=== PATIENT | female | born 1945 | race Caucasian/White ===

== ENCOUNTER 2021-04-08 07:30 | Inpatient (IN) | payer MEDICARE, OTHER ==
[~2021-04-08] VITALS: Ht 170.2 cm; Wt 95.0 kg
[2021-04-15] MEDS ORDERED: HYDR25TA6 PO (13:02)
[2021-04-15] MEDS ORDERED: METO-99 PO (13:02)
[2021-04-15] MEDS ORDERED: ACET-1600 PO (13:02)
[2021-04-15] MEDS ORDERED: LEVO200T PO (13:02)
[2021-04-15] MEDS ORDERED: ATOR20TA37 PO (13:02)
[2021-04-15] MEDS ORDERED: APIX5TAB PO (13:02)
[2021-04-15] MEDS ORDERED: LOSA100T2 PO (13:02)
[2021-04-15 13:52] LABS: MEAN CORPUSCULAR HGB CONC 33.5 g/dL (32.4-35.8); MEAN PLATELET VOLUME 8.9 fL (7.4-10.4); PLATELET COUNT 221 x10^3/uL (130-400); RED BLOOD COUNT 5.22 x10^6/uL (3.82-5.3); RED CELL DISTRIBUTION WIDTH 13.4 % (9.6-15.2)
[2021-04-15 13:55] LABS: MICROSCOPIC AUTO
[2021-04-15 13:58] LABS: ALANINE AMINOTRANSFERASE 28 U/L (12-78); ALBUMIN 3.7 g/dL (3.4-5.0); ANION GAP 6 mmol/L (5-15); CALCIUM 9.4 mg/dL (8.5-10.1); CHLORIDE 104 mmol/L (98-107); CREATININE 0.79 mg/dL (0.55-1.02)
[2021-04-15 14:01] LABS: ALKALINE PHOSPHATASE 48 U/L (45-117); BILIRUBIN,TOTAL 0.8 mg/dL (0.2-1.0); TOTAL PROTEIN 7.2 g/dL (6.4-8.2)
[2021-04-15 14:05] LABS: INTERNATIONAL NORMALIZED RATIO 1.03 (0.93-1.1)
[2021-04-15 15:13] LABS: <RBC MORPHOLOGY> NORMAL; BASOS#(MANUAL) 0.08 x10^3/uL (0-0.1); BASOS% (MANUAL) 1 % (0-1); EOS#(MANUAL) 0.08 x10^3/uL (0.0-0.4); EOS% (MANUAL) 1 % (1-7); LYMPH#(MANUAL) 2.46 x10^3/uL (1-3.4); LYMPHS% (MANUAL) 30 % (22-44); MONOS#(MANUAL) 0.66 x10^3/uL (0.3-2.7); MONOS% (MANUAL) 8 % (2-9); SEG#(MANUAL) 4.92 x10^3/uL (1.8-6.8); SEGS% (MANUAL) 60 % (42-75)
[2021-04-15 15:14] LABS: <PLATELET ESTIMATE> ADEQUATE; <PLT MORPHOLOGY> NORMAL PLT MORPH
[2021-04-16 04:46] VITALS: BP_SYST 156; BP_DIAS 107; BP_DIAS 98
[2021-04-16] MEDS ORDERED: CHLORHEXIDINE 15 ML UDC MM SCH (05:00)
[2021-04-16] MEDS ORDERED: INSULIN LISPRO 100 UNITS/ML, PEN SQ-INSULIN SCH (05:00)
[2021-04-16] MEDS ORDERED: DO NOT GIVE MC SCH (05:00)
[2021-04-16] MEDS: MUPIROCIN OINT 2%, 15GM TP SCH ×2 (05:17→18:00)
[2021-04-16] MEDS ORDERED: MIDAZOLAM 10MG/2 ML ONE (07:05)
[2021-04-16] MEDS ORDERED: FENTANYL PF 250 MCG/5ML ONE ×4 (07:06)
[2021-04-16] MEDS ORDERED: REGULAR INSULIN 100 UNITS in SODIUM CHLORIDE 0.9% 99 ML IV PRN ×2 (07:30→12:30)
[2021-04-16] MEDS ORDERED: MANNITOL PMX 20% 500 ML IVPB PRN (07:30)
[2021-04-16] MEDS ORDERED: POTASSIUM CHLORIDE 80 MEQ, SODIUM BICARBONATE 8.4% 10 MEQ, MAGNESIUM SULFATE 0.5 GM, LI... IV PRN (07:30)
[2021-04-16] MEDS ORDERED: PHENYLEPHRINE 50 MG in SODIUM CHLORIDE 0.9% 245 ML IV PRN ×2 (07:30→12:30)
[2021-04-16] MEDS ORDERED: EPINEPHRINE 5 MG in SODIUM CHLORIDE 0.9% 245 ML IV PRN ×2 (07:30→12:30)
[2021-04-16] MEDS ORDERED: ALBUMIN HUMAN 5% 500 ML IV PRN ×2 (07:30→12:30)
[2021-04-16] MEDS ORDERED: VANCOMYCIN 1,400 MG in SODIUM CHLORIDE 0.9% 250 ML IV PRN (07:30)
[2021-04-16] MEDS ORDERED: DEXMEDETOMIDINE 200 MCG in SODIUM CHLORIDE 0.9% 48 ML IV PRN (07:30)
[2021-04-16] MEDS ORDERED: CEFUROXIME 1.5 GM in SODIUM CHLORIDE 0.9% 50 ML IVPB PRN (07:30)
[2021-04-16] MEDS ORDERED: PROPOFOL 10 MG/ML, 20ML ONE (10:41)
[2021-04-16] MEDS ORDERED: ROCURONIUM 10MG/ML,5ML ONE ×2 (10:41)
[2021-04-16] MEDS ORDERED: PROTAMINE SULFATE 10 MG/ML, 25ML ONE ×3 (10:41)
[2021-04-16] MEDS ORDERED: AMINOCAPROIC ACID 250 MG/ML, 20ML ONE ×2 (10:41)
[2021-04-16] MEDS ORDERED: AMIODARONE 50 MG/ML, 3ML ONE ×2 (11:20)
[2021-04-16] MEDS ORDERED: DEXTROSE 50%, 50ML SYRINGE IVPush PRN (12:30)
[2021-04-16] MEDS: INSULIN LISPRO 100 UNITS/ML, PEN SQ-INSULIN SCH ×3 (12:30→20:30)
[2021-04-16] MEDS: KSCALE TO 4.5 IV SCH ×2 (12:30→18:30)
[2021-04-16] MEDS ORDERED: CALCIUM CHLORIDE 13.6 MEQ in SODIUM CHLORIDE 0.9% 100 ML IVPB PRN (12:30)
[2021-04-16] MEDS ORDERED: PROCHLORPERAZINE 5 MG/ML, 2ML IVPush PRN (12:30)
[2021-04-16] MEDS ORDERED: PROMETHAZINE 25 MG SUPP PR PRN (12:30)
[2021-04-16] MEDS ORDERED: MIDAZOLAM 1 MG/ML, 2ML IV PRN (12:30)
[2021-04-16] MEDS ORDERED: LACTATED RINGERS 500 ML IV PRN (12:30)
[2021-04-16] MEDS ORDERED: FENTANYL PF 100 MCG/2ML IV PRN (12:30)
[2021-04-16] MEDS ORDERED: GLUCAGON 1 MG IM PRN (12:30)
[2021-04-16] MEDS ORDERED: DEXTROSE 4 GM TAB.CHEW PO PRN (12:30)
[2021-04-16] MEDS ORDERED: NITROGLYCERIN/D5W PMX 250 ML IV PRN (12:30)
[2021-04-16] MEDS ORDERED: DEXMEDETOMIDINE 400 MCG in SODIUM CHLORIDE 0.9% 96 ML IV PRN (12:30)
[2021-04-16] MEDS: ACETAMINOPHEN 500 MG TABLET PO SCH ×3 (12:30→23:34)
[2021-04-16] MEDS ORDERED: SODIUM CHLORIDE 0.9% 1,000 ML IV SCH (12:30)
[2021-04-16] MEDS ORDERED: INSULIN REGULAR 100 UNITS/ML, 3ML VIAL IVPush PRN (12:30)
[2021-04-16] MEDS ORDERED: CALCIUM CHLORIDE 10%, 10ML SYR ONE (12:54)
[2021-04-16] MEDS ORDERED: HEPARIN 1,000 UNITS/ML, 30ML ONE (12:54)
[2021-04-16] MEDS ORDERED: SODIUM BICARB 8.4%, 50ML SYRINGE ONE (12:54)
[2021-04-16] MEDS ORDERED: POTASSIUM CHLORIDE 40MEQ/20ML IV ONE (12:55)
[2021-04-16] MEDS ORDERED: MAGNESIUM SULFATE PMX 2GM/50ML 50 ML ONE (12:55)
[2021-04-16] MEDS ORDERED: ALBUMIN HUMAN 25% 50 ML ONE (12:55)
[2021-04-16] MEDS ORDERED: LIDOCAINE 2%, 20ML ONE (12:55)
[2021-04-16 13:21] LABS: GLUCOSE BY BLOOD GAS ANALYZER 153 mg/dL (70-110); HEMOGLOBIN BY BLOOD GAS ANALYZ 12.9 g/dL (14.0-18.0); POTASSIUM BY BLOOD GAS ANALYZR 4.1 mmol/L (3.6-5.5)
[2021-04-16 13:22] LABS: FIO2 60 %
[2021-04-16] MEDS: SODIUM BICARB 8.4%, 50ML SYRINGE IV PRN ×2 (13:46→15:02)
[2021-04-16] MEDS: MAGNESIUM SULFATE 1 GM in SODIUM CHLORIDE 0.9% 100 ML IVPB SCH (13:47)
[2021-04-16] MEDS: SODIUM CHLORIDE FLUSH 10ML SYR IVF SCH ×3 (13:54→21:03)
[2021-04-16] MEDS: morphine SULFATE 10 MG/ML, 1ML IVPush PRN ×2 (14:25→17:31)
[2021-04-16] MEDS ORDERED: AMIODARONE 150 MG in DEXTROSE 5% 100 ML IV ONE (17:30)
[2021-04-16] MEDS ORDERED: FILTER 0.22 MICRON IV ONE (17:30)
[2021-04-16] MEDS: OXYcodone IR 5MG TABLET PO PRN ×2 (17:31→21:31)
[2021-04-16] MEDS: AMIODARONE 450 MG in DEXTROSE 5% 241 ML IV PRN (17:39)
[2021-04-16] MEDS: CEFUROXIME 1.5 GM in SODIUM CHLORIDE 0.9% 50 ML IVPB SCH (19:30)
[2021-04-16] MEDS ORDERED: POTASSIUM CHLORIDE 30 MEQ in SODIUM CHLORIDE 0.9% 100 ML IV ONE (19:30)
[2021-04-16] MEDS: VANCOMYCIN 1,400 MG in SODIUM CHLORIDE 0.9% 250 ML IVPB SCH (21:03)
[2021-04-16] MEDS: DOCUSATE 100 MG CAPSULE PO SCH (21:06)
[2021-04-16] MEDS: SENNA/DOCUSATE TABLET PO SCH (21:06)
[2021-04-16] MEDS: ONDANSETRON 2MG/ML, 2ML IVPush PRN (23:03)
[2021-04-17] MEDS: OXYcodone IR 5MG TABLET PO PRN ×4 (00:26→14:36)
[2021-04-17] MEDS: KSCALE TO 4.5 IV SCH ×2 (00:30→06:12)
[2021-04-17] MEDS: INSULIN LISPRO 100 UNITS/ML, PEN SQ-INSULIN SCH ×6 (00:30→20:33)
[2021-04-17] MEDS: AMIODARONE 450 MG in DEXTROSE 5% 241 ML IV PRN (00:42)
[2021-04-17] MEDS: morphine SULFATE 10 MG/ML, 1ML IVPush PRN (02:10)
[2021-04-17] MEDS ORDERED: FUROSEMIDE 40 MG/4 ML IV ONE ×2 (05:00→21:30)
[2021-04-17] MEDS: MUPIROCIN OINT 2%, 15GM TP SCH ×2 (05:25→18:33)
[2021-04-17] MEDS: MUPIROCIN OINT 2%, 15GM NAS SCH ×2 (05:26→17:59)
[2021-04-17 05:27] LABS: MEAN CORPUSCULAR HEMOGLOBIN 28.9 pg (27.0-34.8); MEAN CORPUSCULAR HGB CONC 33.1 g/dL (32.4-35.8); MEAN PLATELET VOLUME 9.2 fL (7.4-10.4); PLATELET COUNT 121 x10^3/uL (130-400); RED BLOOD COUNT 4.74 x10^6/uL (3.82-5.3); RED CELL DISTRIBUTION WIDTH 13.8 % (9.6-15.2)
[2021-04-17 05:33] LABS: ANION GAP 5 mmol/L (5-15); CALCIUM 8.7 mg/dL (8.5-10.1); CHLORIDE 114 mmol/L (98-107); CREATININE 1.11 mg/dL (0.55-1.02)
[2021-04-17 05:57] LABS: <PLATELET ESTIMATE> DECREASED; <PLT MORPHOLOGY> NORMAL PLT MORPH; <RBC MORPHOLOGY> NORMAL; BAND#(MANUAL) 1.08 x10^3/uL; BANDS%(MANUAL) 6 % (0-7); LYMPH#(MANUAL) 2.16 x10^3/uL (1-3.4); LYMPHS% (MANUAL) 12 % (22-44); MONOS#(MANUAL) 1.44 x10^3/uL (0.3-2.7); MONOS% (MANUAL) 8 % (2-9); SEG#(MANUAL) 13.32 x10^3/uL (1.8-6.8); SEGS% (MANUAL) 74 % (42-75)
[2021-04-17 05:58] LABS: PMNS WITH VACUOLES 1+
[2021-04-17] MEDS: ACETAMINOPHEN 500 MG TABLET PO SCH ×3 (06:12→18:33)
[2021-04-17] MEDS: CEFUROXIME 1.5 GM in SODIUM CHLORIDE 0.9% 50 ML IVPB SCH (06:31)
[2021-04-17] MEDS: OMEPRAZOLE 20 MG CAPSULE.DR PO SCH (07:45)
[2021-04-17] MEDS: VANCOMYCIN 1,400 MG in SODIUM CHLORIDE 0.9% 250 ML IVPB SCH (08:13)
[2021-04-17] MEDS: POLYETHYLENE GLYCOL 17 GM PACKET PO SCH (09:00)
[2021-04-17] MEDS: SODIUM CHLORIDE FLUSH 10ML SYR IVF SCH ×4 (09:00→20:56)
[2021-04-17] MEDS: DOCUSATE 100 MG CAPSULE PO SCH ×2 (09:26→20:43)
[2021-04-17] MEDS: CHLORHEXIDINE 15 ML UDC MM SCH ×2 (09:27→20:44)
[2021-04-17] MEDS: SENNA/DOCUSATE TABLET PO SCH ×2 (09:27→20:44)
[2021-04-17] MEDS: ASPIRIN 81 MG TABLET EC PO SCH (09:27)
[2021-04-17] MEDS ORDERED: POTASSIUM CHLORIDE 20 MEQ TAB.ER.PRT PO ONE (10:00)
[2021-04-17] MEDS ORDERED: FUROSEMIDE 40 MG/4 ML IV SCH (10:00)
[2021-04-17] MEDS ORDERED: METOPROLOL TARTRATE 25 MG TAB ONE (10:07)
[2021-04-17] MEDS: METOPROLOL TARTRATE 25 MG TAB PO SCH ×2 (10:10→17:59)
[2021-04-17] MEDS: AMIODARONE 200 MG TABLET PO SCH ×2 (10:10→20:43)
[2021-04-17] MEDS: LEVOTHYROXINE 200 MCG TABLET PO SCH (10:11)
[2021-04-17] MEDS: MAGNESIUM SULFATE 1 GM in SODIUM CHLORIDE 0.9% 100 ML IVPB SCH (12:29)
[2021-04-17] MEDS: LORazepam 1MG TABLET PO PRN (14:36)
[2021-04-18] MEDS: ACETAMINOPHEN 500 MG TABLET PO SCH ×4 (00:53→18:29)
[2021-04-18] MEDS: INSULIN LISPRO 100 UNITS/ML, PEN SQ-INSULIN SCH ×5 (00:56→21:00)
[2021-04-18] MEDS: DIPHENHYDRAMINE 25 MG CAPSULE PO PRN (01:02)
[2021-04-18 05:29] LABS: BASOPHILS % (AUTO) 1 % (0-1); EOSINOPHILS % (AUTO) 0 % (1-7); LYMPHOCYTES % (AUTO) 10 % (22-44); MEAN CORPUSCULAR HEMOGLOBIN 28.8 pg (27.0-34.8); MEAN CORPUSCULAR HGB CONC 32.9 g/dL (32.4-35.8); MONOCYTES % (AUTO) 9 % (2-9); NEUTROPHILS % (AUTO) 80 % (42-75); PLATELET COUNT 89 x10^3/uL (130-400); RED BLOOD COUNT 4.21 x10^6/uL (3.82-5.3); RED CELL DISTRIBUTION WIDTH 13.6 % (9.6-15.2)
[2021-04-18 05:38] LABS: ANION GAP 7 mmol/L (5-15); CALCIUM 8.9 mg/dL (8.5-10.1); CHLORIDE 107 mmol/L (98-107); CREATININE 1.69 mg/dL (0.55-1.02)
[2021-04-18] MEDS: MUPIROCIN OINT 2%, 15GM NAS SCH ×2 (06:20→21:01)
[2021-04-18] MEDS: LEVOTHYROXINE 200 MCG TABLET PO SCH (06:31)
[2021-04-18] MEDS: METOPROLOL TARTRATE 25 MG TAB PO SCH ×2 (06:32→18:29)
[2021-04-18] MEDS: MUPIROCIN OINT 2%, 15GM TP SCH (06:32)
[2021-04-18] MEDS ORDERED: ENOXAPARIN 40 MG/0.4 ML SQ SCH (09:00)
[2021-04-18] MEDS: SENNA/DOCUSATE TABLET PO SCH ×2 (09:27→21:01)
[2021-04-18] MEDS: OMEPRAZOLE 20 MG CAPSULE.DR PO SCH (09:27)
[2021-04-18] MEDS: AMIODARONE 200 MG TABLET PO SCH ×2 (09:27→21:01)
[2021-04-18] MEDS: ASPIRIN 81 MG TABLET EC PO SCH (09:27)
[2021-04-18] MEDS: DOCUSATE 100 MG CAPSULE PO SCH ×2 (09:27→21:01)
[2021-04-18] MEDS: FUROSEMIDE 20 MG/2 ML IV SCH ×2 (09:28→21:01)
[2021-04-18] MEDS: SODIUM CHLORIDE FLUSH 10ML SYR IVF SCH ×2 (09:28→21:01)
[2021-04-18] MEDS: POLYETHYLENE GLYCOL 17 GM PACKET PO SCH (09:28)
[2021-04-18] MEDS: CHLORHEXIDINE 15 ML UDC MM SCH ×2 (09:28→21:02)
[2021-04-18] MEDS: MAGNESIUM SULFATE 1 GM in SODIUM CHLORIDE 0.9% 100 ML IVPB SCH (12:01)
[2021-04-18] MEDS ORDERED: BISACODYL 10 MG SUPP PR PRN (12:30)
[2021-04-18 13:14] VITALS: BP 120/73
[2021-04-18] MEDS: OXYcodone IR 5MG TABLET PO PRN ×2 (15:01→18:29)
[2021-04-18 18:27] VITALS: BP 116/72
[2021-04-19] MEDS: ACETAMINOPHEN 500 MG TABLET PO SCH ×4 (00:33→17:40)
[2021-04-19 00:53] VITALS: BP 118/75
[2021-04-19 05:26] LABS: BASOPHILS % (AUTO) 0 % (0-1); EOSINOPHILS % (AUTO) 1 % (1-7); LYMPHOCYTES % (AUTO) 14 % (22-44); MEAN CORPUSCULAR HEMOGLOBIN 28.9 pg (27.0-34.8); MEAN CORPUSCULAR HGB CONC 33.3 g/dL (32.4-35.8); MEAN PLATELET VOLUME 10.2 fL (7.4-10.4); MONOCYTES % (AUTO) 9 % (2-9); NEUTROPHILS % (AUTO) 76 % (42-75); PLATELET COUNT 85 x10^3/uL (130-400); RED CELL DISTRIBUTION WIDTH 14.2 % (9.6-15.2)
[2021-04-19 05:29] LABS: ANION GAP 7 mmol/L (5-15); CALCIUM 8.7 mg/dL (8.5-10.1); CHLORIDE 102 mmol/L (98-107)
[2021-04-19] MEDS: METOPROLOL TARTRATE 25 MG TAB PO SCH ×2 (05:43→17:40)
[2021-04-19] MEDS: LEVOTHYROXINE 200 MCG TABLET PO SCH (05:44)
[2021-04-19] MEDS: MUPIROCIN OINT 2%, 15GM NAS SCH ×2 (05:44→17:32)
[2021-04-19 06:35] VITALS: BP 129/75
[2021-04-19] MEDS: INSULIN LISPRO 100 UNITS/ML, PEN SQ-INSULIN SCH (06:55)
[2021-04-19] MEDS ORDERED: METOLAZONE 2.5 MG TABLET PO ONE (08:00)
[2021-04-19] MEDS: POLYETHYLENE GLYCOL 17 GM PACKET PO SCH (08:29)
[2021-04-19] MEDS: AMIODARONE 200 MG TABLET PO SCH ×2 (08:31→21:30)
[2021-04-19] MEDS: SENNA/DOCUSATE TABLET PO SCH ×2 (08:31→21:30)
[2021-04-19] MEDS: FUROSEMIDE 20 MG/2 ML IV SCH ×2 (08:31→21:30)
[2021-04-19] MEDS: SODIUM CHLORIDE FLUSH 10ML SYR IVF SCH ×2 (08:32→21:31)
[2021-04-19] MEDS: ASPIRIN 81 MG TABLET EC PO SCH (08:32)
[2021-04-19] MEDS: OMEPRAZOLE 20 MG CAPSULE.DR PO SCH (08:32)
[2021-04-19] MEDS: DOCUSATE 100 MG CAPSULE PO SCH ×2 (08:32→21:30)
[2021-04-19] MEDS ORDERED: ENOXAPARIN 30 MG/0.3 ML SQ SCH (09:00)
[2021-04-19 09:43] VITALS: BP 105/63
[2021-04-19] MEDS: ONDANSETRON 2MG/ML, 2ML IVPush PRN ×2 (11:15→17:40)
[2021-04-19 12:17] VITALS: BP 135/89
[2021-04-19 18:10] VITALS: BP 136/81
[2021-04-19] MEDS: APIXABAN 5 MG TABLET PO SCH (21:30)
[2021-04-19 23:38] VITALS: BP 130/83
[2021-04-20] MEDS: ACETAMINOPHEN 500 MG TABLET PO SCH ×4 (00:30→17:41)
[2021-04-20 05:33] LABS: BASOPHILS % (AUTO) 0 % (0-1); EOSINOPHILS % (AUTO) 1 % (1-7); LYMPHOCYTES % (AUTO) 14 % (22-44); MEAN CORPUSCULAR HEMOGLOBIN 29.2 pg (27.0-34.8); MEAN CORPUSCULAR HGB CONC 33.8 g/dL (32.4-35.8); MEAN PLATELET VOLUME 9.7 fL (7.4-10.4); MONOCYTES % (AUTO) 10 % (2-9); NEUTROPHILS % (AUTO) 75 % (42-75); PLATELET COUNT 112 x10^3/uL (130-400); RED BLOOD COUNT 4.19 x10^6/uL (3.82-5.3); RED CELL DISTRIBUTION WIDTH 13.6 % (9.6-15.2)
[2021-04-20 05:35] LABS: ANION GAP 9 mmol/L (5-15); CHLORIDE 99 mmol/L (98-107); CREATININE 0.81 mg/dL (0.55-1.02)
[2021-04-20] MEDS: MUPIROCIN OINT 2%, 15GM NAS SCH ×2 (06:00→17:54)
[2021-04-20] MEDS: METOPROLOL TARTRATE 25 MG TAB PO SCH ×2 (06:00→17:52)
[2021-04-20] MEDS: LEVOTHYROXINE 200 MCG TABLET PO SCH (06:01)
[2021-04-20] MEDS: SODIUM CHLORIDE FLUSH 10ML SYR IVF SCH ×2 (07:58→21:12)
[2021-04-20] MEDS: POLYETHYLENE GLYCOL 17 GM PACKET PO SCH (07:59)
[2021-04-20] MEDS: APIXABAN 5 MG TABLET PO SCH ×2 (07:59→21:11)
[2021-04-20] MEDS: SENNA/DOCUSATE TABLET PO SCH ×2 (07:59→21:00)
[2021-04-20] MEDS: ASPIRIN 81 MG TABLET EC PO SCH (07:59)
[2021-04-20] MEDS: DOCUSATE 100 MG CAPSULE PO SCH ×2 (07:59→21:00)
[2021-04-20] MEDS: FUROSEMIDE 20 MG/2 ML IV SCH ×2 (08:00→21:12)
[2021-04-20] MEDS: AMIODARONE 200 MG TABLET PO SCH ×2 (08:00→21:11)
[2021-04-20] MEDS: OMEPRAZOLE 20 MG CAPSULE.DR PO SCH (08:00)
[2021-04-20 08:02] VITALS: BP 148/73
[2021-04-20] MEDS: ONDANSETRON 2MG/ML, 2ML IVPush PRN (08:24)
[2021-04-20 13:23] VITALS: BP 148/60
[2021-04-20] MEDS ORDERED: POTASSIUM CHLORIDE 20 MEQ TAB.ER.PRT PO ONE (14:00)
[2021-04-20 14:10] VITALS: BP 132/80
[2021-04-20] MEDS: LORazepam 1MG TABLET PO PRN (16:53)
[2021-04-20 16:56] VITALS: BP 161/75
[2021-04-20] MEDS: METOCLOPRAMIDE 10MG TABLET PO SCH ×2 (17:40→21:12)
[2021-04-20 18:30] VITALS: BP 143/57
[2021-04-20] MEDS: DIPHENHYDRAMINE 25 MG CAPSULE PO PRN (22:11)
[2021-04-21 00:07] VITALS: BP 158/84
[2021-04-21] MEDS: ACETAMINOPHEN 500 MG TABLET PO SCH ×2 (00:18→06:06)
[2021-04-21 04:43] LABS: BASOPHILS % (AUTO) 1 % (0-1); EOSINOPHILS % (AUTO) 1 % (1-7); LYMPHOCYTES % (AUTO) 21 % (22-44); MEAN CORPUSCULAR HEMOGLOBIN 29.1 pg (27.0-34.8); MEAN CORPUSCULAR HGB CONC 34.2 g/dL (32.4-35.8); MEAN PLATELET VOLUME 8.2 fL (7.4-10.4); MONOCYTES % (AUTO) 12 % (2-9); NEUTROPHILS % (AUTO) 65 % (42-75); PLATELET COUNT 157 x10^3/uL (130-400); RED CELL DISTRIBUTION WIDTH 13.1 % (9.6-15.2)
[2021-04-21 04:57] LABS: ANION GAP 7 mmol/L (5-15); CHLORIDE 95 mmol/L (98-107); CREATININE 0.78 mg/dL (0.55-1.02)
[2021-04-21] MEDS: MUPIROCIN OINT 2%, 15GM NAS SCH ×2 (06:06→18:12)
[2021-04-21] MEDS: LEVOTHYROXINE 200 MCG TABLET PO SCH (06:06)
[2021-04-21] MEDS: METOPROLOL TARTRATE 25 MG TAB PO SCH ×2 (06:07→18:12)
[2021-04-21 06:26] VITALS: BP 151/87
[2021-04-21] MEDS: FUROSEMIDE 20 MG/2 ML IV SCH ×2 (08:07→20:01)
[2021-04-21] MEDS: AMIODARONE 200 MG TABLET PO SCH ×2 (08:08→20:00)
[2021-04-21] MEDS: OMEPRAZOLE 20 MG CAPSULE.DR PO SCH (08:08)
[2021-04-21] MEDS: APIXABAN 5 MG TABLET PO SCH ×2 (08:09→20:00)
[2021-04-21] MEDS: METOCLOPRAMIDE 10MG TABLET PO SCH ×4 (08:09→20:10)
[2021-04-21] MEDS: SODIUM CHLORIDE FLUSH 10ML SYR IVF SCH ×2 (08:09→20:03)
[2021-04-21] MEDS: ASPIRIN 81 MG TABLET EC PO SCH (08:11)
[2021-04-21] MEDS: DOCUSATE 100 MG CAPSULE PO SCH ×2 (08:11→20:01)
[2021-04-21] MEDS: SENNA/DOCUSATE TABLET PO SCH ×2 (08:12→20:00)
[2021-04-21] MEDS: POLYETHYLENE GLYCOL 17 GM PACKET PO SCH (08:12)
[2021-04-21] MEDS ORDERED: POTASSIUM CHLORIDE 20 MEQ TAB.ER.PRT PO ONE (09:00)
[2021-04-21] MEDS: LOSARTAN 50MG TABLET PO SCH (09:42)
[2021-04-21 12:07] VITALS: BP 148/87
[2021-04-21 18:13] VITALS: BP 119/61
[2021-04-21 18:35] VITALS: BP 103/65
[2021-04-21] MEDS: OXYcodone IR 5MG TABLET PO PRN (22:07)
[2021-04-22 01:00] VITALS: BP 129/82
[2021-04-22 05:07] LABS: BASOPHILS % (AUTO) 1 % (0-1); EOSINOPHILS % (AUTO) 3 % (1-7); LYMPHOCYTES % (AUTO) 27 % (22-44); MEAN CORPUSCULAR HGB CONC 34.1 g/dL (32.4-35.8); MEAN PLATELET VOLUME 7.8 fL (7.4-10.4); MONOCYTES % (AUTO) 18 % (2-9); NEUTROPHILS % (AUTO) 52 % (42-75); PLATELET COUNT 181 x10^3/uL (130-400); RED BLOOD COUNT 4.21 x10^6/uL (3.82-5.3); RED CELL DISTRIBUTION WIDTH 13.6 % (9.6-15.2)
[2021-04-22 05:22] LABS: CHLORIDE 94 mmol/L (98-107)
[2021-04-22 05:27] LABS: ANION GAP 7 mmol/L (5-15); CALCIUM 8.7 mg/dL (8.5-10.1); CREATININE 0.71 mg/dL (0.55-1.02)
[2021-04-22] MEDS: METOPROLOL TARTRATE 25 MG TAB PO SCH (06:00)
[2021-04-22] MEDS: LEVOTHYROXINE 200 MCG TABLET PO SCH (06:00)
[2021-04-22] MEDS ORDERED: POTASSIUM CHLORIDE 20 MEQ TAB.ER.PRT PO ONE ×2 (06:00→07:00)
[2021-04-22 06:01] VITALS: BP 144/86
[2021-04-22 07:02] VITALS: BP 142/88
[2021-04-22] MEDS: METOCLOPRAMIDE 10MG TABLET PO SCH ×3 (07:04→16:10)
[2021-04-22] MEDS: OMEPRAZOLE 20 MG CAPSULE.DR PO SCH (07:04)
[2021-04-22] MEDS ORDERED: POTASSIUM CHLORIDE 20 MEQ TAB.ER.PRT PO SCH (08:00)
[2021-04-22] MEDS: FUROSEMIDE 20 MG/2 ML IV SCH (08:13)
[2021-04-22] MEDS: APIXABAN 5 MG TABLET PO SCH (08:14)
[2021-04-22] MEDS: LOSARTAN 50MG TABLET PO SCH (08:14)
[2021-04-22] MEDS: AMIODARONE 200 MG TABLET PO SCH (08:14)
[2021-04-22] MEDS: ASPIRIN 81 MG TABLET EC PO SCH (08:15)
[2021-04-22] MEDS: SODIUM CHLORIDE FLUSH 10ML SYR IVF SCH (08:15)
[2021-04-22] MEDS: DOCUSATE 100 MG CAPSULE PO SCH (08:15)
[2021-04-22] MEDS: SENNA/DOCUSATE TABLET PO SCH (08:16)
[2021-04-22] MEDS: POLYETHYLENE GLYCOL 17 GM PACKET PO SCH (08:16)
[2021-04-22] MEDS: OXYcodone IR 5MG TABLET PO PRN ×2 (08:16→11:36)
[2021-04-22 08:29] LABS: ALANINE AMINOTRANSFERASE 40 U/L (12-78); ALBUMIN 2.8 g/dL (3.4-5.0); ANION GAP 4 mmol/L (5-15); CALCIUM 8.7 mg/dL (8.5-10.1); CHLORIDE 96 mmol/L (98-107); CREATININE 0.64 mg/dL (0.55-1.02)
[2021-04-22 08:31] LABS: ALKALINE PHOSPHATASE 43 U/L (45-117); BILIRUBIN,TOTAL 0.6 mg/dL (0.2-1.0)
[2021-04-22] MEDS ORDERED: OXYC5TAB98 PO (09:39)
[2021-04-22] MEDS ORDERED: LOSA50TA2 PO (09:39)
[2021-04-22] MEDS ORDERED: AMIO200T42 PO (09:39)
[2021-04-22] MEDS ORDERED: POTA20TA6 PO (09:39)
[2021-04-22] MEDS ORDERED: FURO-93 PO (09:39)
[2021-04-22] MEDS ORDERED: METO25TA35 PO (09:39)
[2021-04-22] MEDS ORDERED: ASPI81TA45 PO (09:39)
[2021-04-22 12:08] VITALS: BP 130/79
== END 2021-04-22 17:44 | disposition home or self-care (01) | DRG 219 ==
LOC: 5SO 04-16 04:35 → CSU 04-16 07:03 → 5SO 04-18 10:29
PROVIDERS: ADMIT Thoracic Surgery (Cardiothoracic Vascular Surgery); ATTEND Thoracic Surgery (Cardiothoracic Vascular Surgery)
PROC: 02RF08Z Replacement of Aortic Valve with Zooplastic Tissue, Open Approach (ICD-10-PCS; 2021-04-16)
PROC: 5A1221Z Performance of Cardiac Output, Continuous (ICD-10-PCS; 2021-04-16)
PROC: 02580ZZ Destruction of Conduction Mechanism, Open Approach (ICD-10-PCS; 2021-04-16)
PROC: B24BZZ4 Ultrasonography of Heart with Aorta, Transesophageal (ICD-10-PCS; 2021-04-16)
PROC: 02B70ZK Excision of Left Atrial Appendage, Open Approach (ICD-10-PCS; 2021-04-16)
PROC: 02RX0JZ Replacement of Thoracic Aorta, Ascending/Arch with Synthetic Substitute, Open Approach (ICD-10-PCS; 2021-04-16)
PROC: 02L70ZK Occlusion of Left Atrial Appendage, Open Approach (ICD-10-PCS; principal; 2021-04-16 07:30)
DX: I35.1 Nonrheumatic aortic (valve) insufficiency (principal); J96.02 Acute respiratory failure with hypercapnia; J96.01 Acute respiratory failure with hypoxia; N17.9 Acute kidney failure, unspecified; E87.2 Acidosis; D72.829 Elevated white blood cell count, unspecified; E87.5 Hyperkalemia; E87.6 Hypokalemia; I48.91 Unspecified atrial fibrillation; Z20.822 Contact with and (suspected) exposure to COVID-19; I71.2 Thoracic aortic aneurysm, without rupture; Z87.891 Personal history of nicotine dependence; Z90.710 Acquired absence of both cervix and uterus
CPT/HCPCS: 36415; 36600; 71045; 71046; 74018; 80048; 80053; 81001; 82330; 82800; 82803; 82810; 82947; 82962; 83036; 83735; 84132; 84295; 85014; 85018; 85025; 85049; 85347; 85610; 85730; 86850; 86900; 86923; 87081; 88304; 88305; 93005; 93312; 93321; 93325; 93880; 94002; 94660; C1768; G0378; J0171; J0697; J1644; J1650; J1815; J1940; J2250; J2405; J2704; J2720; J3010; J3370; J3475; J3480; J7060; P9045; P9047; U0005; C1751; C1760; C1762; C2618; J0282; J0780; J2270; J2370; J7050; Q0163; Q0181; U0003